=== PATIENT | female | born 1975 | race Caucasian/White ===

== ENCOUNTER 2016-06-16 11:46 | Emergency (ER) | payer OTHER ==
[2016-06-16 14:29] VITALS: BP 103/67
--- NOTE | 2016-06-16 15:10 | UC ---
Respiratory Complaint HPI - HPI Summary HPI Summary: Cough, ST, pain in airway, and nightly fevers starting 5 days ago. Temps have been 101-103 every night, including last night. Temp this morning was 100F. Denies n/v/d or fever, recently dx with asthma and is having tightness in her chest without wheezing. - History of Current Complaint Chief Complaint: UCGeneralIllness Stated Complaint: FEVER HEAD/CHEST CONGESTION Time Seen by Provider: 06/16/16 14:34 Hx Obtained From: Patient Hx Last Menstrual Period: 05/30/16 ?: No Onset/Duration: Gradual Onset, Lasting Days Timing: Constant Severity Initially: Moderate Severity Currently: Moderate Character: Cough: Nonproductive Aggravating Factors: Deep Breaths, Recumbent Position Alleviating Factors: Upright Position Associated Signs And Symptoms: Positive: Fever, Chills, Pleuritic Chest Pain, Nasal Congestion - Allergies/Home Medications Allergies/Adverse Reactions: Allergies Allergy/AdvReac Type Severity Reaction Status Date / Time Penicillins Allergy Intermediate Hives Verified 04/11/16 06:18 Latex Allergy Mild Rash Verified 04/11/16 06:18 Home Medications: Home Medications Budesonide/Formote 80/4.5(NF) [Symbicort 80/4.5 (NF)] 2 puff BID 06/16/16 [ History Confirmed 06/16/16] PMH/Surg Hx/FS Hx/Imm Hx Endocrine History Of: Denies: Diabetes, Thyroid Disease Cardiovascular History Of: Denies: Cardiac Disorders, Hypertension, Pacemaker/ICD Respiratory History Of: Reports: Asthma Denies: COPD GI/ History Of: Denies: Ulcer Neurological History Of: Denies: Dementia, Seizures Psychological History Of: Reports: Anxiety, Depression - MOD TO SEVERE DEPRESSION Cancer History Of: Denies: Breast Cancer - Surgical History Surgical History: Yes Surgery Procedure, Year, and Place: 2013 TUBAL LIGATION. GLAND DRAINED FROM UNDER LEFT ARM, [facility] [place]. 1996 DILATION AND CURETTAGE, [facility] [place]. LEFT HIP-03/30 - Family History Known Family History: Positive: Hypertension - Social History Alcohol Use: None Substance Use Type: None Smoking Status (MU): Never Smoked Tobacco Have You Smoked in the Last Year: No Household Exposure Type: Cigarettes - Immunization History Most Recent Influenza Vaccination: 2014 Most Recent Tetanus Shot: 2013 Most Recent Pneumonia Vaccination: none Review of Systems Constitutional: Fever Skin: Negative Eyes: Negative ENT: Sore Throat Respiratory: Cough Cardiovascular: Negative Gastrointestinal: Negative Genitourinary: Negative Motor: Negative Neurovascular: Negative Musculoskeletal: Negative Neurological: Negative Psychological: Negative All Other Systems Reviewed And Are Negative: Yes Physical Exam Triage Information Reviewed: Yes Appearance: Well-Appearing, No Pain Distress, Well-Nourished Vital Signs: Initial Vital Signs Temp 98.6 F 06/16/16 14:23 Pulse 65 06/16/16 14:23 Resp 18 06/16/16 14:23 BP 103/67 06/16/16 14:23 Pulse Ox 99 06/16/16 14:23 Vital Signs Reviewed: Yes Eye Exam: Normal Eyes: Positive: Conjunctiva Clear ENT Exam: Normal ENT: Positive: Normal ENT inspection, Hearing grossly normal, Pharynx normal, TMs normal Neck exam: Normal Neck: Positive: Supple, Nontender, No Lymphadenopathy Respiratory Exam: Other - freq dry cough Respiratory: Positive: Chest non-tender, Lungs clear, Normal breath sounds, No respiratory distress, No accessory muscle use Cardiovascular Exam: Normal Cardiovascular: Positive: RRR, No Murmur Musculoskeletal Exam: Normal Neurological Exam: Normal Psychological Exam: Normal Skin Exam: Normal UC Diagnostic Evaluation - Laboratory O2 Sat by Pulse Oximetry: 99 Respiratory Course/Dx - Differential Dx/Diagnosis Provider Diagnoses: Influenza-like illness Discharge - Discharge Plan Condition: Stable Disposition: HOME Prescriptions: Albuterol HFA INHALER* [Ventolin HFA Inhaler*] 1 - 2 puff INH Q4H PRN #1 mdi PRN Reason: wheeze, cough Guaifenesin-Codeine [Guaiatussin AC] 5 - 10 ml PO Q6H #120 ml MDD 40mL Patient Education Materials: Upper Respiratory Infection (ED) Forms: *Work Release Referrals: Gail Fletcher NP [Primary Care Provider] - If Needed Additional Instructions: Call or return if you develop increasing fever, shortness of breath, chest pain , bloody sputum, or otherwise worsen. If you have not improved at all after several days, contact your primary care physician or return here.
--- NOTE | 2016-06-16 15:29 | RAD ---
INDICATION: Cough and fever COMPARISON: July 06, 2004 TECHNIQUE: PA and lateral dual-energy views were obtained. FINDINGS: Bones/Soft Tissues: There are no acute bony findings. Cardiomediastinal: The cardiomediastinal silhouette is normal. Lungs: There are no infiltrates. Pleura: There are no pleural effusions. Other: None IMPRESSION: NORMAL CHEST.
== END 2016-06-16 15:36 | disposition home or self-care (01) ==
LOC: UCEAST 11:46
DX: J11.1 Influenza due to unidentified influenza virus with other respiratory manifestations (principal); Z88.0 Allergy status to penicillin; Z77.22 Contact with and (suspected) exposure to environmental tobacco smoke (acute) (chronic)
CPT/HCPCS: 71020; 87502; 99212; G0463

== ENCOUNTER 2016-12-20 08:55 | Emergency (ER) | payer OTHER ==
[2016-12-20] MEDS ORDERED: Ketorolac INJ* 60 MG/2 ML VIAL IM ONE (09:57)
[2016-12-20 11:02] VITALS: BP 103/63
--- NOTE | 2016-12-30 22:02 | UC ---
Yuliana Finnegan Edward, scribed for Pavithra Lozano DO on 12/20/16 at 0938 . Cardiac HPI - HPI Summary HPI Summary: 41 y/o female presents to [facility] c/o sharp CP around the mid-sternal chest area that is worse at night and when she gets up in the morning. Patient states that the pain gets better progressively through the day. The pain is rated at an 8/ 10 in severity, is aggravated by deep breaths, touch, cough and movement of the head (looking down) and arms (lifting), and is alleviated by Ibuprofen. It also radiates to the back when the patient looks down. The pain has been going on intermittently for the past 5-6 months and has gotten worse. Additional sx: chronic decreased ROM in hip. Denies SOB, fevers, chills, diaphoresis, N/V, sore throat, ear pain, eye discharge, dizziness, and abd pain. PMHx herniated disc, asthma, bipolar disorder. SHx labral tear repair 8 months ago. FHx - father HTN, mother DM, [place] (hodgkin's lymphoma). Patient is a non-smoker. - History of Current Complaint Chief Complaint: UCGeneralIllness Stated Complaint: CHEST WALL ,PAIN Time Seen by Provider: 12/20/16 09:34 Hx Obtained From: Patient Onset/Duration: Gradual Onset Initial Severity: Moderate Current Severity: Moderate Chest Pain Location: Mid Sternal Character: Sharp/Stabbing Aggravating: Position - Pain radiates to her back when she moves her head down, Deep Breaths Associated Signs & Symptoms: Positive: Chest Pain. Negative: SOB, Nausea/ Vomiting, Cough, Abdominal Pain - Allergy/Home Medications Allergies/Adverse Reactions: Allergies Allergy/AdvReac Type Severity Reaction Status Date / Time Penicillins Allergy Intermediate Hives Verified 04/11/16 06:18 Latex Allergy Mild Rash Verified 04/11/16 06:18 PMH/Surg Hx/FS Hx/Imm Hx - Additional Past Medical History Additional PMH: Labral tear. No COPD, cardiac disorders, HTN, DM, thyroid disease, and ulcers Previously Healthy: No Respiratory History: Asthma Psychological History: Bipolar Disorder - Surgical History Surgical History: Yes Surgery Procedure, Year, and Place: 2013 TUBAL LIGATION. GLAND DRAINED FROM UNDER LEFT ARM, [facility] [place]. 1996 DILATION AND CURETTAGE, [facility] [place]. LEFT HIP-03/30 - Family History Known Family History: Positive: Hypertension, Other - CA (Hodgkin's lymphoma) - Social History Alcohol Use: None Substance Use Type: None Smoking Status (MU): Never Smoked Tobacco Have You Smoked in the Last Year: No Household Exposure Type: Cigarettes - Immunization History Most Recent Influenza Vaccination: 2014 Most Recent Tetanus Shot: 2012 Most Recent Pneumonia Vaccination: none Review of Systems Constitutional: Negative Skin: Negative Eyes: Negative ENT: Negative Respiratory: Negative Cardiovascular: Chest Pain Gastrointestinal: Negative Genitourinary: Negative Motor: Negative Neurovascular: Negative Musculoskeletal: Decreased ROM - chronic in hip Neurological: Negative Psychological: Negative All Other Systems Reviewed And Are Negative: Yes Physical Exam Triage Information Reviewed: Yes Appearance: Well-Appearing, No Pain Distress, Well-Nourished Vital Signs: Initial Vital Signs Temp 98.3 F 12/20/16 08:57 Pulse 70 12/20/16 08:57 Resp 16 12/20/16 08:57 BP 105/68 12/20/16 08:57 Pulse Ox 100 12/20/16 08:57 Vital Signs Reviewed: Yes Eyes: Positive: Conjunctiva Clear. Negative: Discharge ENT: Positive: Hearing grossly normal. Negative: Muffled/hoarse voice Neck exam: Normal Neck: Positive: Supple Respiratory: Positive: Lungs clear, Normal breath sounds, No respiratory distress, No accessory muscle use Cardiovascular: Positive: RRR, No Murmur Musculoskeletal Exam: Other - Reproducible chest tenderness around the costosternal joint Neurological: Positive: Alert, Muscle Tone Normal Psychological Exam: Normal Psychological: Positive: Age Appropriate Behavior Skin Exam: Normal - Clinical Impression Provider Diagnoses: costochondritis Discharge - Discharge Plan Condition: Stable Disposition: HOME Prescriptions: Naproxen [Naproxen EC 500 MG TAB] 500 mg PO BID #14 tab traMADol TAB* [Ultram*] 50 mg PO Q8H PRN #14 tab MDD 3 TABS PRN Reason: Pain Patient Education Materials: Costochondritis (ED) Referrals: Gail Fletcher NP [Primary Care Provider] - (follow up in 2-4 days) Additional Instructions: ANTI-INFLAMMATORY MEDICATION: You have received a prescription for an antiinflammatory agent. This is an excellent, safe drug for pain control. In addition, it has potent antiinflammatory effects which are beneficial, especially in the treatment of injuries, arthritis, or tendonitis. It's best to take this medicine with food. Persons with ulcer disease or allergy to aspirin should notify their physician of this before taking this drug. Take the medication exactly as prescribed. Don't take additional doses unless instructed to do so by your doctor. If you develop wheezing, shortness of breath, hives, faintness, stomach pain, vomiting, or dark black stools, return for re-evaluation at once. ULTRAM (tramadol hydrochloride): Ultram is an excellent drug for pain relief. It is not a narcotic, but it works in a similar way. Ultram can take up to two hours for full effect. Although not addicting, Ultram is best avoided in patients with a history of drug abuse. Ultram should not be used with alcohol, sleeping pills, or narcotics. If you're prone to seizures, Ultram can make you more likely to have a seizure. Ultram can be hazardous when combined with MAO-inhibitor antidepressants (such as Nardil or Parnate). Be sure your doctor is aware of all medicines you are taking. Persons with severe liver or kidney disease should increase the time between doses of Ultram. Discuss this with your doctor if you're uncertain. Side effects of Ultram can include dizziness, nausea, constipation, sleepiness, and itching. (These side effects are also seen with narcotic pain medicines.) Please call your doctor if you have other disturbing effects. YOU WOULD LIKELY BENEFIT FROM OSTEOPATHIC TREATMENT. WE RECOMMEND THAT YOU FIND AN OSTEOPATHIC PHYSICIAN IN YOUR AREA WHO FOCUSES EXCLUSIVELY ON OSTEOPATHIC MANIPULATIVE MEDICINE WITH EXPERTISE IN MYOFACIAL, LYMPHATIC, VISCERAL AND INTEROSSEOUS WORK The documentation as recorded by the Yuliana velazquez Edward accurately reflects the service I personally performed and the decisions made by , Pavithra Lozano DO.
== END 2016-12-20 11:02 | disposition home or self-care (01) ==
LOC: UCEAST 08:55
DX: M94.0 Chondrocostal junction syndrome [Tietze] (principal); J45.909 Unspecified asthma, uncomplicated; F31.9 Bipolar disorder, unspecified; Z88.0 Allergy status to penicillin; Z91.040 Latex allergy status; Z77.22 Contact with and (suspected) exposure to environmental tobacco smoke (acute) (chronic)
CPT/HCPCS: 99212; G0463; J1885

== ENCOUNTER 2017-08-26 17:13 | Emergency (ER) | payer OTHER ==
[2017-08-26 17:35] VITALS: BP 108/72
--- NOTE | 2017-08-26 17:51 | ED ---
GI/ HPI - HPI Summary HPI Summary: 42-year-old female presents with dysuria urgency frequency the for the past day. She states she thinks she has UTI. She denies any vaginal discharge. She has a history of STDs. She denies any flank pain. She denies any fevers. She denies any nausea vomiting. She denies any recent illness. She admits to suprapubic pain. - History of Current Complaint Chief Complaint: UCGU Time Seen by Provider: 08/26/17 17:40 Stated Complaint: BURNING AND FREQUENT URINATION Hx Last Menstrual Period: 11/30/16 Pain Intensity: 5 - Allergy/Home Medications Allergies/Adverse Reactions: Allergies Allergy/AdvReac Type Severity Reaction Status Date / Time Latex, Natural Rubber Allergy Rash Verified 08/26/17 17:36 Penicillins Allergy Hives Verified 08/26/17 17:36 PMH/Surg Hx/FS Hx/Imm Hx Endocrine/Hematology History: Denies: Hx Diabetes, Hx Thyroid Disease Cardiovascular History: Denies: Hx Hypertension, Hx Pacemaker/ICD Respiratory History: Reports: Hx Asthma, Other Respiratory Problems/Disorders - CHRONIC POST NASAL DRIP Denies: Hx Chronic Obstructive Pulmonary Disease (COPD) GI History: Denies: Hx Ulcer History: Denies: Hx Dialysis Musculoskeletal History: Reports: Hx Arthritis - MILD, Other Musculoskeletal History Denies: Hx Back Problems, Hx Scoliosis Sensory History: Denies: Hx Contacts or Glasses, Hx Hearing Aid Opthamlomology History: Denies: Hx Contacts or Glasses Neurological History: Reports: Other Neuro Impairments/Disorders - BIPOLAR Denies: Hx Dementia, Hx Headaches, Hx Seizures Psychiatric History: Reports: Hx Anxiety, Hx Depression - MOD TO SEVERE DEPRESSION Denies: Hx Panic Disorder - Cancer History Hx Chemotherapy: No Hx Radiation Therapy: No - Surgical History Surgery Procedure, Year, and Place: 2013 TUBAL LIGATION. GLAND DRAINED FROM UNDER LEFT ARM, [facility] [place]. 1996 DILATION AND CURETTAGE, [facility] [place]. LEFT HIP-03/30 Hx Anesthesia Reactions: No Infectious Disease History: No Infectious Disease History: Denies: Hx Clostridium Difficile, Hx Hepatitis, Hx Human Immunodeficiency Virus (HIV), Hx of Known/Suspected MRSA, Hx Shingles, Hx Tuberculosis, Hx Known/ Suspected VRE, Hx Known/Suspected VRSA, History Other Infectious Disease, Traveled Outside the [place] in Last 30 Days - Family History Known Family History: Positive: Hypertension - Social History Alcohol Use: None Substance Use Type: Reports: None Smoking Status (MU): Never Smoked Tobacco Have You Smoked in the Last Year: No Review of Systems Negative: Fever Negative: Chest Pain Negative: Shortness Of Breath Positive: dysuria, frequency, urgency. Negative: flank pain All Other Systems Reviewed And Are Negative: Yes Physical Exam Triage Information Reviewed: Yes Vital Signs On Initial Exam: Initial Vitals Temp Pulse Resp BP Pulse Ox 97.4 F 70 19 108/72 100 08/26/17 17:29 08/26/17 17:29 08/26/17 17:29 08/26/17 17:29 08/26/17 17:29 Vital Signs Reviewed: Yes Appearance: Positive: Well-Appearing Skin: Positive: Warm, Dry Head/Face: Positive: Normal Head/Face Inspection Eyes: Positive: Normal, EOMI, VICTOR MANUEL, Conjunctiva Clear ENT: Positive: Normal ENT inspection, Pharynx normal, TMs normal Respiratory/Lung Sounds: Positive: Clear to Auscultation, Breath Sounds Present Cardiovascular: Positive: Normal, RRR Abdomen Description: Positive: Soft, Other: - mild suprapubic tenderness Bowel Sounds: Positive: Present Musculoskeletal: Positive: Normal Neurological: Positive: Normal Psychiatric: Positive: Normal Diagnostics - Vital Signs Vital Signs Temp Pulse Resp BP Pulse Ox 08/26/17 17:29 97.4 F 70 19 108/72 100 - Laboratory Lab Results: Lab Results 08/26/17 Range/Units 17:35 POC Urine Color Yellow POC Urine Clarity Clear POC Urine pH 7.5 (5-9) POC Ur Specif [place] 1.020 (1.010-1.030) POC Urine Protein Negative (Negative) POC Ur Glucose (UA) Negative (Negative) POC Urine Ketones Negative (Negative) POC Urine Blood 2+ A (Negative) POC Urine Nitrite Positive A (Negative) POC Urine Bilirubin Negative (Negative) POC Urine Urobilinogen 0.2 (Negative) POC U Leukocyte [place] 1+ A (Negative) Lab Statement: Any lab studies that have been ordered have been reviewed, and results considered in the medical decision making process. GIGU Course/Dx - Course Course Of Treatment: 42-year-old female presents with dysuria urgency frequency the for the past day. She states she thinks she has UTI. She denies any vaginal discharge. She has a history of STDs. She denies any flank pain. She denies any fevers. She denies any nausea vomiting. She denies any recent illness. She admits to suprapubic pain. On exam tenderness suprapubic. Negative CVA tenderness. Urine shows UTI with nitrates and leuko. Will treat with Bactrim. Patient understands and agrees plan. - Diagnoses Differential Diagnoses - Female: Pyelonephritis, Urinary Tract Infection, Ureteral Calculi Provider Diagnoses: UTI (urinary tract infection) Discharge - Discharge Plan Condition: Good Disposition: HOME Prescriptions: Phenazopyridine 200 mg (NF) [Pyridium 200 MG tab *] 200 mg PO TID #6 tab Sulfamethox/Trimethoprim DS* [Bactrim DS 800/160 TAB*] 1 tab PO BID #10 tab Patient Education Materials: Urinary Tract Infection in Women (ED) Referrals: [facility] [place] PHYSICIAN REFERRAL [Outside] Additional Instructions: Take Bactrim twice a day for 5 days Take pyridium two tablets three times a day with food for 2 days Drink plenty of fluids Establish care with primary Return to ED if develop any new or worsening symptoms
== END 2017-08-26 18:25 | disposition home or self-care (01) ==
LOC: UCEAST 17:13
DX: N39.0 Urinary tract infection, site not specified (principal); Z86.19 Personal history of other infectious and parasitic diseases; Z88.0 Allergy status to penicillin
CPT/HCPCS: 81003; 87077; 87086; 87186; 99212; G0463

== ENCOUNTER 2017-11-08 11:07 | Emergency (ER) | payer OTHER ==
[2017-11-08 11:25] VITALS: BP 100/67
--- NOTE | 2017-11-08 12:21 | RAD ---
INDICATION: Wrist pain 2 weeks ago COMPARISON: None TECHNIQUE: AP, lateral, and oblique views were obtained. FINDINGS: The bony structures, joint spaces, and soft tissues are normal for age. IMPRESSION: NO ACUTE FRACTURE.
--- NOTE | 2017-11-08 12:40 | UC ---
Upper Extremity HPI - HPI Summary HPI Summary: Patient presents with complaints of right wrist pain, onset 1-2 week which has been intermittent. She states the last episode occurred while at work, as she was cleaning out a toilet, she was pushing down hard, felt a pop, followed by wrist pain. She states at times she also feels some tingling in the 3-5 fingers. She states the discomfort did respond to ibuprofen. Patient is right hand dominant. - History of Current Complaint Chief Complaint: UCUpperExtremity Stated Complaint: HAND PAIN Time Seen by Provider: 11/08/17 11:47 Hx Obtained From: Patient Hx Last Menstrual Period: 1 WEEK AGO Onset/Duration: Sudden Onset Severity Initially: Severe Severity Currently: Moderate Pain Intensity: 5 Character: Aching Aggravating Factor(s): Movement Alleviating Factor(s): Heat, OTC Meds Associated Signs And Symptoms: Positive: Negative - Risk Factors Non-Orthopedic Risk Factor: Negative - Allergies/Home Medications Allergies/Adverse Reactions: Allergies Allergy/AdvReac Type Severity Reaction Status Date / Time Latex, Natural Rubber Allergy Rash Verified 11/08/17 11:16 Penicillins Allergy Hives Verified 11/08/17 11:16 Home Medications: Home Medications Guaifenesin/Pseudo 600/60(NF) [Mucinex D 600/60 (NF)] 1 tab PO BID 11/08/17 [ History Confirmed 11/08/17] Magnesium Oxide [Magnesium] 1 tab PO DAILY 11/08/17 [History Confirmed 11/08/17] PMH/Surg Hx/FS Hx/Imm Hx Previously Healthy: Yes - Surgical History Surgical History: Yes Surgery Procedure, Year, and Place: 2013 TUBAL LIGATION. GLAND DRAINED FROM UNDER LEFT ARM, [facility] [place]. 1996 DILATION AND CURETTAGE, [facility] [place]. LEFT HIP-03/30 - Family History Known Family History: Positive: Hypertension - Social History Occupation: Employed Full-time Lives: Alone Alcohol Use: None Substance Use Type: None Smoking Status (MU): Never Smoked Tobacco Have You Smoked in the Last Year: No Household Exposure Type: Cigarettes - Immunization History Most Recent Influenza Vaccination: 2014 Most Recent Tetanus Shot: 2012 Most Recent Pneumonia Vaccination: none Review of Systems Constitutional: Negative Skin: Negative Eyes: Negative ENT: Negative Respiratory: Negative Cardiovascular: Negative Gastrointestinal: Negative Genitourinary: Negative Motor: Negative Neurovascular: Negative Musculoskeletal: Negative, Other: - right wrist pain Neurological: Negative Psychological: Negative Is Patient Immunocompromised?: No All Other Systems Reviewed And Are Negative: Yes Physical Exam Triage Information Reviewed: Yes Appearance: Well-Appearing Vital Signs: Initial Vital Signs Temp 97.7 F 11/08/17 11:19 Pulse 61 11/08/17 11:19 Resp 16 11/08/17 11:19 BP 100/67 11/08/17 11:19 Pulse Ox 99 11/08/17 11:19 Vital Signs Reviewed: Yes Eye Exam: Normal ENT Exam: Normal Neck exam: Normal Neck: Positive: 1 Respiratory Exam: Normal Cardiovascular Exam: Normal Musculoskeletal: Positive: Strength Limited @, ROM Limited @ - right wrist, volar aspect. tenderness to palpation over the distal medial aspect. positive tinels sign. vasc, stong radial and ulnar pulses. Neurological Exam: Normal Psychological Exam: Normal Skin Exam: Normal Upper Extremity Course/Dx - Course Course Of Treatment: Patient xrays were negative, was treated with naprosyn and cock up splint. Follow up with orthopedist. - Differential Dx/Diagnosis Differential Diagnosis/HQI/PQRI: Other - tendonitis Provider Diagnoses: tendonitis Discharge - Sign-Out/Discharge Documenting (check all that apply): Discharge/Admit/Transfer - Discharge Plan Condition: Stable Disposition: HOME Prescriptions: Naproxen [Naproxen 375 mg tab] 375 mg PO BID #14 tablet Patient Education Materials: Tendinitis (ED) Referrals: No Primary Care Phys,NOPCP [Primary Care Provider] - Taurus Rangel MD [Medical Doctor] - - Billing Disposition and Condition Condition: STABLE Disposition: HOME
== END 2017-11-08 12:44 | disposition home or self-care (01) ==
LOC: UCEAST 11:07
DX: M65.849 Other synovitis and tenosynovitis, unspecified hand (principal); Z88.0 Allergy status to penicillin; Z91.040 Latex allergy status
CPT/HCPCS: 99213; G0463

== ENCOUNTER 2017-11-17 16:03 | Emergency (ER) | payer OTHER ==
[2017-11-17 16:28] VITALS: BP 104/62
[2017-11-17] MEDS ORDERED: Ipratropium 0.5MG/2.5ML NEB* 0.5 MG/2.5 ML NEB.SOLN INH ONE (17:06)
[2017-11-17] MEDS ORDERED: predniSONE TAB* 20 MG PO ONE (17:06)
[2017-11-17] MEDS ORDERED: Albuterol 2.5 MG/3 ML NEB.SOL* (0.083%) INH ONE (17:06)
--- NOTE | 2017-11-17 17:06 | UC ---
Respiratory Complaint HPI - HPI Summary HPI Summary: PATIENT PRESENTS WITH ABOUT 10 DAYS OF COUGH THAT WAS INITIALLY PRODUCTIVE BUT IS NOW A DRY HACKING COUGH. SHE HAS A SORE THROAT AND POSTNASAL DRAINAGE. STATES SHE FEELS LIKE HER ASTHMA IS FLARING SHE DEVELOPS COUGHING FITS AT NIGHTTIME AND FEELS WHEEZY. USES HER ALBUTEROL WHICH IS ONLY TRANSIENTLY HELPFUL. SHE DENIES ANY FEVER OR NAUSEA. - History of Current Complaint Chief Complaint: UCRespiratory Stated Complaint: COUGH Time Seen by Provider: 11/17/17 16:53 Hx Obtained From: Patient Hx Last Menstrual Period: 11/12/17 Onset/Duration: Gradual Onset, Lasting Days, Still Present Timing: Constant Severity Initially: Moderate Severity Currently: Moderate Pain Intensity: 3 Pain Scale Used: 0-10 Numeric Character: Cough: Nonproductive Aggravating Factors: Allergens, Deep Breaths, Recumbent Position Alleviating Factors: Bronchodilator Associated Signs And Symptoms: Positive: Dyspnea, Wheezing. Negative: Fever, Chills, Nasal Congestion - Allergies/Home Medications Allergies/Adverse Reactions: Allergies Allergy/AdvReac Type Severity Reaction Status Date / Time Latex, Natural Rubber Allergy Rash Verified 11/17/17 16:28 Penicillins Allergy Hives Verified 11/17/17 16:28 PMH/Surg Hx/FS Hx/Imm Hx Respiratory History: Asthma Psychological History: Bipolar Disorder - Surgical History Surgical History: Yes Surgery Procedure, Year, and Place: 2013 TUBAL LIGATION. GLAND DRAINED FROM UNDER LEFT ARM, [facility] [place]. 1996 DILATION AND CURETTAGE, [facility] [place]. LEFT HIP-03/30 - Family History Known Family History: Positive: Hypertension - Social History Alcohol Use: None Substance Use Type: None Smoking Status (MU): Never Smoked Tobacco Have You Smoked in the Last Year: No Household Exposure Type: Cigarettes - Immunization History Most Recent Influenza Vaccination: 2014 Most Recent Tetanus Shot: 2012 Most Recent Pneumonia Vaccination: none Review of Systems Constitutional: Fatigue ENT: Sore Throat Respiratory: Shortness Of Breath, Cough, Other - WHEEZE Cardiovascular: Negative Gastrointestinal: Negative All Other Systems Reviewed And Are Negative: Yes Physical Exam Triage Information Reviewed: Yes Appearance: Well-Appearing, No Pain Distress, Well-Nourished Vital Signs: Initial Vital Signs Temp 98.1 F 11/17/17 16:22 Pulse 80 11/17/17 16:22 Resp 18 11/17/17 16:22 BP 104/62 11/17/17 16:22 Pulse Ox 99 11/17/17 16:22 Vital Signs Reviewed: Yes Eyes: Positive: Conjunctiva Clear ENT: Positive: Hearing grossly normal, Pharyngeal erythema - COBBLESTONING, TMs normal Neck: Positive: Supple, Nontender, No Lymphadenopathy Respiratory: Positive: Lungs clear, Normal breath sounds, No respiratory distress, No accessory muscle use, Other: - DRY COUGH DURING ENCOUNTER Cardiovascular Exam: Normal Abdomen Description: Positive: Soft Musculoskeletal: Positive: No Edema Neurological: Positive: Alert Psychological: Positive: Age Appropriate Behavior Skin: Negative: rashes Diagnostic Evaluation - Laboratory O2 Sat by Pulse Oximetry: 99 Re-Evaluation - Re-Evaluation First Eval Re-Evaluation Time: 17:45 - FEELS BETTER AFTER PREDNISONE 60MG AND DUONEB Change: Improved Respiratory Course/Dx - Course Course Of Treatment: PATIENT LIKELY HAD A URI THAT TRIGGERED AN ASTHMA EXACERBATION. URI SYMPTOMS ARE RESOLVING. SHE FELT BETTER AFTER A DOSE OF PREDNISONE AND A DUONEB HERE IN THE . WILL TREAT WITH 4 MORE DAYS OF PREDNISONE. PATIENT HAS INHALER AND ANTIHISTAMINES AT HOME. SEEK FOLLOW-UP IF NOT IMPROVING EXPECTED. - Differential Dx/Diagnosis Provider Diagnoses: ASTHMA EXACERBATION Discharge - Sign-Out/Discharge Documenting (check all that apply): Discharge/Admit/Transfer - Discharge Plan Condition: Stable Disposition: HOME Prescriptions: predniSONE TAB* [Deltasone TAB*] 50 mg PO DAILY #4 tab Patient Education Materials: Asthma (ED) Referrals: No Primary Care Phys,NOPCP [Primary Care Provider] - Additional Instructions: YOU HAD SOME IMPROVEMENT AFTER YOUR NEBULIZER TREATMENT AND A DOSE OF STEROIDS. CONTINUE PREDNISONE FOR THE NEXT 4 DAYS. USE YOUR INHALER TWICE DAILY AND EVERY 4 HOURS NEEDED. CONTINUE TAKING A DAILY ANTIHISTAMINE. IF YOUR SYMPTOMS DO NOT IMPROVE EXPECTED WITH THIS TREATMENT SEEK FOLLOW-UP WITH A PCP OR HERE. YOU MAY CALL ME IN [place] ON THURSDAY BETWEEN 7AM AND 2:30 PM IF YOU HAVE ANY QUESTIONS OR CONCERNS. [phone]. CALL THE NUMBER BELOW FOR ASSISTANCE IN ESTABLISHING WITH A PCP An additional resource available to assist in finding the appropriate physician for your health care needs is [facility] ([facility]). You may contact them by calling [phone]. - Billing Disposition and Condition Condition: STABLE Disposition: Home
== END 2017-11-17 17:55 | disposition home or self-care (01) ==
LOC: UCEAST 16:03
DX: J45.901 Unspecified asthma with (acute) exacerbation (principal); F31.9 Bipolar disorder, unspecified; Z88.0 Allergy status to penicillin; Z91.040 Latex allergy status; Z82.49 Family history of ischemic heart disease and other diseases of the circulatory system
CPT/HCPCS: 99202; G0463; J7512

== ENCOUNTER 2019-01-20 14:58 | Emergency (ER) | payer OTHER ==
[2019-01-20 15:18] VITALS: BP 96/66
== END 2019-01-20 15:54 | disposition left against medical advice (07) ==
LOC: UCEAST 14:58
DX: Z53.8 Procedure and treatment not carried out for other reasons (principal)